=== PATIENT | female | born 1945 | race Caucasian/White ===

== ENCOUNTER 2016-12-22 07:21 | Emergency (ER) | payer MEDICARE, OTHER ==
[2016-12-22 07:48] VITALS: TEMP 98.4; BMI 26.3
--- NOTE | 2016-12-22 07:57 | EDPRACDOC ---
ED Hip Problem HPI - General Information Chief Complaint: Hip Pain Stated Complaint: HIP PAIN Time Seen by Provider: 12/22/16 07:54 Information Source: Patient, Family Mode of Arrival: Car Home Medications: Home Medications Oxycodone HCl [Roxicodone] 5 mg PO Q4 PRN #10 tablet 12/22/16 Prednisone [Deltasone, Orasone] 10 mg PO DAILY #39 tablet 12/22/16 Allergies/Adverse Reactions: Allergies Allergy/AdvReac Type Severity Reaction Status Date / Time No Known Allergies Allergy Verified 06/22/16 19:54 - History of Present Illness Onset: 7 days HPI: LEFT HIP PAIN FOR ABOUT A WEEK. STEROID INJECTION AT URGENT CARE SATURDAY. PAIN RESOLVED FOR 2 DAYS, BUT NOW HURTING AGAIN, DENIES TRAUMA. PAIN CURRENTLY 07/11. PUT ON ABX ON SATURDAY FOR SINUS CONGESTION. AFTER THAT STARTED HURTING. TOOK 2 TYLENOL LAST NIGHT WITHOUT RELIEF. ED Past Medical History - History Reviewed Yes Nurses notes reviewed and agree except as marked Travel Outside of [place] in the Last 3 Months?: No (PT HAS LEFT HIP PAIN, NOT RIGHT ) - Patient Medical History Psychological History: Denies: Depression, Substance Use Disorder Systemic History: Denies: Cancer Surgical History: Reports: Tonsillectomy, Tonsillectomy/Adnoidectomy (tonsils) - Family Medical History Reports: Diabetes (Mother), Cancer (Sister: lymphoma.), Cardiac Disorders (Half sister with CABG at 60.), Respiratory Disorders (Father: COPD) - Social Medical History Smoking Status: Never smoker Social History: Denies: Substance Use Disorder EDM Review of Systems - Review of Systems ROS Negative Except as Marked: Yes All systems reviewed and were negative except as marked Constitutional: No Symptoms Reported - Physical Exam Constitutional: Alert (Awake), No apparent distress Oriented to: Time, Person, Place Last recorded Vital Signs: Last Vital Signs Temp 98.4 F 12/22/16 07:42 Pulse 74 12/22/16 07:47 Resp 18 12/22/16 07:47 BP 141/76 12/22/16 07:47 Pulse Ox 97 12/22/16 07:47 Oxygen Pulse Oxygen Saturation 97 O2 Device Oxygen Flow Rate Fraction of Inspired Oxygen ( FIO2) - HEENT Head: Normal ( normocephalic) Eye Exam: Normal (PERRL, EOMI, Sclera white) Oropharynx: Normal (Pharynx:Moist without exudate,Gums-no swelling) Nose: No Symptoms Reported (septum midline) Neck: Normal (FROM, trachea at midline) - Respiratory/Cardiovascular Respiratory: Normal - CTA (BBS clear to auscultation without adventitious sounds ) Cardiovascular: Normal (RRR without murmur, gallop or rub) - GI Auscultation: Normal (NABS) Palpation: Normal (Soft,No rebound or guarding, non distended) Tenderness: Non tender Lopez's Sign: Negative - Musculoskeletal Back: Normal (Non-Tender) Extremities: Normal (Normal tone, Pulses 2+ No cyanosis or edema, FROM) - Integumentary Skin: Normal, Warm, Dry Lymphatics: Normal (no adenopathy) - Neurologic Memory Impaired: Normal Motor Function: Normal (Normal tone, Pulses 2+ No cyanosis or edema, FROM) Cranial Nerve: Normal (CN II-X11 intact sensation, strength 5/5) Cerebellar: Normal Mood Description: Normal Perception: Normal ED Hip Problem Physical Exam - Musculoskeletal Hip: Mild tenderness (LEFT LATERAL HIP.) Decision Time to Discharge: 08:59 - Departure Yes I personally saw and evaluated the patient. Disposition: Home Condition: Stable Final Diagnosis: Hip pain, left Instructions: Hip Injury Education/Counseling Given To: Patient Education/Counseling Given Regarding: Diagnosis Referrals: Harvinder Han DO [Staff Physician] - Two Weeks Prescriptions: Oxycodone HCl [Roxicodone] 5 mg PO Q4 PRN #10 tablet PRN Reason: Pain Prednisone [Deltasone, Orasone] 10 mg PO DAILY #39 tablet
[2016-12-22] MEDS ORDERED: OXYCODONE HCL 5 MG TABLET PO ONE (08:02)
[2016-12-22] MEDS ORDERED: ONDANSETRON HCL 4 MG ODT TAB PO ONE (08:02)
[2016-12-22] MEDS ORDERED: PREDNISONE 20 MG TAB PO ONE (08:02)
--- NOTE | 2016-12-22 08:46 | DIRPT ---
CLINICAL DATA: Left hip pain, no known injury, initial encounter EXAM: LEFT HIP (WITH PELVIS) 2-3 VIEWS COMPARISON: None. FINDINGS: Pelvic ring is intact. Mild degenerative changes of the hip joints are noted. Degenerative changes of the sacroiliac joints are seen bilaterally. The proximal femur is within normal limits. IMPRESSION: Degenerative changes without acute abnormality. Electronically Signed By: Felton Barbour M.D. On: 12/22/2016 08:43
[2016-12-22 09:25] VITALS: BP 145/67; PULSE 85
== END 2016-12-22 09:22 | disposition home or self-care (01) ==
LOC: ED 07:21
DX: M25.552 Pain in left hip (principal)
CPT/HCPCS: 73502; 99283; A9270; J3490